=== PATIENT | male | born 1965 | race Caucasian/White ===

== ENCOUNTER 2019-11-14 21:21 | Emergency (ER) | payer SELFPAY ==
[~2019-11-14] VITALS: Ht 172.7 cm; Wt 85.7 kg
[2019-11-14] MEDS ORDERED: THIAMINE 100MG TABLET ONE (22:00)
[2019-11-14] MEDS ORDERED: THIAMINE 100MG TABLET PO ONE (22:00)
[2019-11-14] MEDS ORDERED: LORazepam 1MG TABLET PO ONE (22:00)
[2019-11-14] MEDS ORDERED: LORazepam 1MG TABLET ONE (22:01)
[2019-11-14 23:32] VITALS: BP 142/101
== END 2019-11-15 00:07 | disposition home or self-care (01) ==
LOC: ED 22:38
DX: S93.491A Sprain of other ligament of right ankle, initial encounter (principal); S20.212A Contusion of left front wall of thorax, initial encounter; F10.220 Alcohol dependence with intoxication, uncomplicated; Y90.9 Presence of alcohol in blood, level not specified; I10 Essential (primary) hypertension; Z90.89 Acquired absence of other organs; W01.0XXA Fall on same level from slipping, tripping and stumbling without subsequent striking against object, initial encounter; Y93.89 Activity, other specified; Y92.89 Other specified places as the place of occurrence of the external cause; Y99.8 Other external cause status
CPT/HCPCS: 99284

== ENCOUNTER 2019-11-25 23:36 | Inpatient (IN) | payer OTHER ==
[~2019-11-25] VITALS: Ht 172.7 cm; Wt 87.5 kg
[2019-11-26] MEDS ORDERED: SODIUM CHLORIDE 0.9% 1,000ML IVBOLUS ONE
[2019-11-26] MEDS ORDERED: MAGNESIUM SULFATE 1 GM, THIAMINE 100 MG, FOLIC ACID 1 MG, MVI ADULT 10 ML in SODIUM CHL... IV ONE
[2019-11-26] MEDS ORDERED: SODIUM CHLORIDE FLUSH 10ML SYR IVF ONE
[2019-11-26] MEDS ORDERED: LORazepam 2 MG/ML, 1ML ONE ×5 (00:06→04:34)
[2019-11-26] MEDS: LORazepam 2 MG/ML, 1ML IVPush PRN ×4 (00:25→04:37)
--- NOTE | 2019-11-26 00:33 | NUR ---
LATE ENTRY DUE TO PATIENT CARE: THIS IS A 53 YO MALE COMING IN WIHT CHIEF COMPLAINT OF NUMBNESS AND TINGLING TO BILATERAL ARMS AND LEGS. EQUAL STRENGTH BILATERALLY IN ALL EXTREMITIES, CSM INTACT, DIMINISHED SENSATION IN HANDS AND FEET. PATIENT STATES IT STARTED AT APPROX 2230. PATIENT APPEARS TO BE IN ETOH WITHDRAWL WITH CONTINUOUS TREMORS NOTED AT REST, PATIENT HAS HX OF WITHDRAWLS FROM ETOH, WELL A STROKE. DENIES ANY FACIAL NUMBNESS, PERRLA, NO FACIAL DROOP. ALL MONITORING IN PLACE, SINUS TACHYCARDIA NOTED ON COMMISSIONER PUBLIC WORKS. PATIENT HAS BEEN EXTREMELY ANXIOUS SINCE GETTING TO ROOM, PIV PLACED AND MEDICATED PER EMAR. CIWA SCALE IN PROGRESS. CALL LIGHT IN REACH. GIRLFRIEND IN ROOM
[2019-11-26 00:45] LABS: ALANINE AMINOTRANSFERASE 85 U/L (12-78); ALBUMIN 3.9 g/dL (3.4-5.0); ANION GAP 9 mmol/L (5-15); CALCIUM 8.8 mg/dL (8.5-10.1); CHLORIDE 100 mmol/L (98-107); CREATININE 0.72 mg/dL (0.7-1.3)
[2019-11-26 00:47] LABS: ALKALINE PHOSPHATASE 132 U/L (45-117); BILIRUBIN,TOTAL 1.4 mg/dL (0.2-1.0); TOTAL PROTEIN 8.2 g/dL (6.4-8.2)
--- NOTE | 2019-11-26 00:48 | NUR ---
MEDICATED PER EMAR FOR CONTINUOUS TREMORS WHILE AT REST. ERP UPDATED ON MEDS GIVEN
[2019-11-26 01:20] LABS: BASOPHILS # (AUTO) 0.01 x10^3/uL (0-0.1); BASOPHILS % (AUTO) 0 % (0-1); EOSINOPHILS % (AUTO) 0 % (1-7); LYMPHOCYTES # (AUTO) 0.26 x10^3/uL (1-3.4); LYMPHOCYTES % (AUTO) 9 % (22-44); MD SCAN; MEAN CORPUSCULAR HGB CONC 34.1 g/dL (33.2-36.2); MEAN CORPUSCULAR VOLUME 99.8 fL (81-97); MEAN PLATELET VOLUME 6.1 fL (7.4-10.4); MONOCYTES # (AUTO) 0.27 x10^3/uL (0.2-0.8); MONOCYTES % (AUTO) 9 % (2-9); NEUTROPHILS # (AUTO) 2.33 x10^3/uL (1.8-6.8); NEUTROPHILS % (AUTO) 81 % (42-75); PLATELET COUNT 95 x10^3/uL (130-400); RED BLOOD COUNT 4.65 x10^6/uL (4.38-5.82); RED CELL DISTRIBUTION WIDTH 14.7 % (9.4-14.8)
--- NOTE | 2019-11-26 02:43 | NUR ---
REPORT GIVEN TO AARON TERRY WHO IS TO ASSUME CARE FO PATIENT AT THIS TIME
--- NOTE | 2019-11-26 03:25 | NUR ---
Pt sleeping in [facility] at this time, VSS, appears comfortable with KASH
[2019-11-26] MEDS ORDERED: LORazepam 2 MG/ML, 1ML IV PRN ×3 (03:30→11:30)
[2019-11-26] MEDS ORDERED: hydrALAzine 20 MG/ML, 1ML IVPush PRN (03:30)
[2019-11-26] MEDS ORDERED: LABETALOL 5MG/ML, 20ML IVPush PRN (03:30)
[2019-11-26] MEDS ORDERED: CHLORDIAZEPOXIDE 25 MG CAPSULE PO PRN ×4 (03:30→23:00)
[2019-11-26] MEDS ORDERED: CHLORDIAZEPOXIDE 10 MG CAPSULE PO PRN (03:30)
[2019-11-26] MEDS ORDERED: ONDANSETRON 2MG/ML, 2ML IVPush PRN (03:30)
[2019-11-26] MEDS ORDERED: HEPARIN 5,000 UNITS/ML, 1ML ONE (03:58)
[2019-11-26] MEDS: POTASSIUM CHLORIDE 20 MEQ in LACTATED RINGERS 1,000 ML IV SCH ×3 (04:02→23:32)
[2019-11-26] MEDS: HEPARIN 5,000 UNITS/ML, 1ML SQ SCH ×3 (04:02→21:38)
[2019-11-26] MEDS ORDERED: ONDANSETRON 2MG/ML, 2ML ONE (04:34)
--- NOTE | 2019-11-26 05:07 | NUR ---
Report called to Priscilla WALKER to assume care upon transfer to [facility]
[2019-11-26 05:45] VITALS: BP 137/93
[2019-11-26 07:12] VITALS: BP 134/85
[2019-11-26] MEDS ORDERED: LORazepam 2 MG/ML, 1ML IVPush ONE ×2 (08:00)
[2019-11-26 08:18] LABS: ALANINE AMINOTRANSFERASE 71 U/L (12-78); ALBUMIN 3.4 g/dL (3.4-5.0); ANION GAP 8 mmol/L (5-15); CALCIUM 8.7 mg/dL (8.5-10.1); CHLORIDE 103 mmol/L (98-107); CREATININE 0.53 mg/dL (0.7-1.3)
[2019-11-26 08:21] LABS: ALKALINE PHOSPHATASE 113 U/L (45-117); BILIRUBIN,TOTAL 1.9 mg/dL (0.2-1.0)
[2019-11-26 08:37] LABS: MEAN CORPUSCULAR HEMOGLOBIN 33.6 pg (27.5-34.5); MEAN CORPUSCULAR HGB CONC 33.5 g/dL (33.2-36.2); MEAN CORPUSCULAR VOLUME 100.1 fL (81-97); RED BLOOD COUNT 4.24 x10^6/uL (4.38-5.82); RED CELL DISTRIBUTION WIDTH 14.6 % (9.4-14.8)
[2019-11-26 08:59] LABS: BASOPHILS # (AUTO) 0.02 x10^3/uL (0-0.1); BASOPHILS % (AUTO) 1 % (0-1); EOSINOPHILS # (AUTO) 0.02 x10^3/uL (0-0.4); EOSINOPHILS % (AUTO) 0 % (1-7); LYMPHOCYTES # (AUTO) 0.56 x10^3/uL (1-3.4); LYMPHOCYTES % (AUTO) 16 % (22-44); MD SCAN; MEAN PLATELET VOLUME 6.7 fL (7.4-10.4); MONOCYTES # (AUTO) 0.31 x10^3/uL (0.2-0.8); MONOCYTES % (AUTO) 9 % (2-9); NEUTROPHILS # (AUTO) 2.67 x10^3/uL (1.8-6.8); NEUTROPHILS % (AUTO) 75 % (42-75); PLATELET COUNT 79 x10^3/uL (130-400)
[2019-11-26] MEDS ORDERED: LORazepam 0.5MG TABLET PO PRN (11:30)
[2019-11-26] MEDS ORDERED: LORazepam 1MG TABLET PO PRN ×3 (11:30)
[2019-11-26] MEDS: LORazepam 2 MG/ML, 1ML IV PRN ×7 (11:56→22:19)
[2019-11-26 12:33] VITALS: BP 169/109
[2019-11-26 18:49] VITALS: BP 154/96
[2019-11-27] MEDS: LORazepam 2 MG/ML, 1ML IV PRN ×5 (01:00→23:18)
[2019-11-27 01:07] VITALS: BP 173/113
[2019-11-27 01:32] VITALS: BP_SYST 152; BP_SYST 166; BP_DIAS 95; BP_DIAS 98
[2019-11-27] MEDS ORDERED: CHLORDIAZEPOXIDE 25 MG CAPSULE PO PRN (03:00)
[2019-11-27 06:02] LABS: CHLORIDE 103 mmol/L (98-107)
[2019-11-27 06:14] LABS: ALANINE AMINOTRANSFERASE 61 U/L (12-78); ALBUMIN 3.4 g/dL (3.4-5.0); ALKALINE PHOSPHATASE 110 U/L (45-117); ANION GAP 8 mmol/L (5-15); BILIRUBIN,TOTAL 2.4 mg/dL (0.2-1.0); CALCIUM 9.3 mg/dL (8.5-10.1); CREATININE 0.57 mg/dL (0.7-1.3); TOTAL PROTEIN 7.3 g/dL (6.4-8.2)
[2019-11-27 06:20] LABS: MEAN CORPUSCULAR VOLUME 99.8 fL (81-97); MEAN PLATELET VOLUME 7.1 fL (7.4-10.4); PLATELET COUNT 80 x10^3/uL (130-400); RED BLOOD COUNT 4.36 x10^6/uL (4.38-5.82); RED CELL DISTRIBUTION WIDTH 14.2 % (9.4-14.8)
[2019-11-27] MEDS: HEPARIN 5,000 UNITS/ML, 1ML SQ SCH ×3 (06:24→20:14)
[2019-11-27 06:51] LABS: BASOPHILS # (AUTO) 0.02 x10^3/uL (0-0.1); BASOPHILS % (AUTO) 1 % (0-1); EOSINOPHILS # (AUTO) 0.01 x10^3/uL (0-0.4); EOSINOPHILS % (AUTO) 0 % (1-7); LYMPHOCYTES # (AUTO) 0.33 x10^3/uL (1-3.4); LYMPHOCYTES % (AUTO) 10 % (22-44); MD SCAN; MONOCYTES # (AUTO) 0.43 x10^3/uL (0.2-0.8); MONOCYTES % (AUTO) 12 % (2-9); NEUTROPHILS # (AUTO) 2.74 x10^3/uL (1.8-6.8); NEUTROPHILS % (AUTO) 78 % (42-75)
[2019-11-27] MEDS ORDERED: POTASSIUM CHLORIDE 20 MEQ TAB.ER.PRT PO ONE (07:00)
[2019-11-27 07:52] VITALS: BP 157/104
[2019-11-27] MEDS ORDERED: POTASSIUM CHLORIDE 10 MEQ TABLET.ER ONE (09:59)
[2019-11-27] MEDS: POTASSIUM CHLORIDE 20 MEQ in LACTATED RINGERS 1,000 ML IV SCH ×2 (11:20→20:15)
[2019-11-27 13:25] VITALS: BP 125/86
[2019-11-27] MEDS: CHLORDIAZEPOXIDE 25 MG CAPSULE PO SCH ×2 (17:18→20:15)
[2019-11-27 20:54] VITALS: BP 143/96
[2019-11-27] MEDS ORDERED: CHLORDIAZEPOXIDE 25 MG CAPSULE PO SCH (21:00)
[2019-11-27 23:00] LABS: MICROSCOPIC NOT IND
[2019-11-28 02:00] VITALS: BP 170/49
[2019-11-28] MEDS: LORazepam 2 MG/ML, 1ML IV PRN ×5 (04:01→21:19)
[2019-11-28] MEDS: CHLORDIAZEPOXIDE 25 MG CAPSULE PO SCH ×4 (05:43→19:54)
[2019-11-28] MEDS: HEPARIN 5,000 UNITS/ML, 1ML SQ SCH ×3 (05:43→22:53)
[2019-11-28] MEDS: POTASSIUM CHLORIDE 20 MEQ in LACTATED RINGERS 1,000 ML IV SCH ×2 (06:00→22:53)
[2019-11-28 06:09] LABS: MEAN CORPUSCULAR HEMOGLOBIN 34.3 pg (27.5-34.5); MEAN CORPUSCULAR HGB CONC 34.2 g/dL (33.2-36.2); MEAN CORPUSCULAR VOLUME 100.4 fL (81-97); MEAN PLATELET VOLUME 7.5 fL (7.4-10.4); PLATELET COUNT 87 x10^3/uL (130-400); RED BLOOD COUNT 4.29 x10^6/uL (4.38-5.82); RED CELL DISTRIBUTION WIDTH 14.6 % (9.4-14.8)
[2019-11-28 06:12] LABS: CHLORIDE 106 mmol/L (98-107)
[2019-11-28 06:35] LABS: ANION GAP 8 mmol/L (5-15); CALCIUM 9.4 mg/dL (8.5-10.1); CREATININE 0.54 mg/dL (0.7-1.3)
[2019-11-28 06:37] LABS: BASOPHILS # (AUTO) 0.01 x10^3/uL (0-0.1); BASOPHILS % (AUTO) 0 % (0-1); EOSINOPHILS # (AUTO) 0.02 x10^3/uL (0-0.4); EOSINOPHILS % (AUTO) 1 % (1-7); LYMPHOCYTES # (AUTO) 0.57 x10^3/uL (1-3.4); LYMPHOCYTES % (AUTO) 14 % (22-44); MD SCAN; MONOCYTES # (AUTO) 0.51 x10^3/uL (0.2-0.8); MONOCYTES % (AUTO) 13 % (2-9); NEUTROPHILS # (AUTO) 2.84 x10^3/uL (1.8-6.8); NEUTROPHILS % (AUTO) 72 % (42-75)
[2019-11-28 06:52] VITALS: BP 146/109
[2019-11-28 08:08] LABS: ALANINE AMINOTRANSFERASE 48 U/L (12-78)
[2019-11-28 08:10] LABS: ALKALINE PHOSPHATASE 95 U/L (45-117); BILIRUBIN,TOTAL 1.9 mg/dL (0.2-1.0); TOTAL PROTEIN 6.4 g/dL (6.4-8.2)
[2019-11-28 15:00] VITALS: BP 125/92
[2019-11-28 19:33] LABS: BASOPHILS # (AUTO) 0.02 x10^3/uL (0-0.1); BASOPHILS % (AUTO) 0 % (0-1); EOSINOPHILS # (AUTO) 0.03 x10^3/uL (0-0.4); EOSINOPHILS % (AUTO) 1 % (1-7); LYMPHOCYTES % (AUTO) 13 % (22-44); MD NO; MEAN CORPUSCULAR HEMOGLOBIN 34.5 pg (27.5-34.5); MEAN CORPUSCULAR HGB CONC 34.1 g/dL (33.2-36.2); MEAN PLATELET VOLUME 7.5 fL (7.4-10.4); MONOCYTES # (AUTO) 0.52 x10^3/uL (0.2-0.8); MONOCYTES % (AUTO) 11 % (2-9); NEUTROPHILS # (AUTO) 3.42 x10^3/uL (1.8-6.8); NEUTROPHILS % (AUTO) 75 % (42-75); PLATELET COUNT 103 x10^3/uL (130-400); RED BLOOD COUNT 4.18 x10^6/uL (4.38-5.82); RED CELL DISTRIBUTION WIDTH 14.1 % (9.4-14.8)
[2019-11-28 19:45] LABS: ALANINE AMINOTRANSFERASE 50 U/L (12-78); ALBUMIN 2.9 g/dL (3.4-5.0); ANION GAP 8 mmol/L (5-15); CALCIUM 9.2 mg/dL (8.5-10.1); CHLORIDE 105 mmol/L (98-107); CREATININE 0.76 mg/dL (0.7-1.3)
[2019-11-28 19:47] LABS: ALKALINE PHOSPHATASE 99 U/L (45-117); BILIRUBIN,TOTAL 1.7 mg/dL (0.2-1.0); TOTAL PROTEIN 6.5 g/dL (6.4-8.2)
[2019-11-28 20:03] VITALS: BP 139/97
[2019-11-29 00:16] VITALS: BP 143/96
[2019-11-29] MEDS: LORazepam 2 MG/ML, 1ML IV PRN ×3 (00:23→08:15)
[2019-11-29] MEDS: IBUPROFEN 600 MG TABLET PO PRN ×3 (01:45→18:32)
[2019-11-29] MEDS: CHLORDIAZEPOXIDE 25 MG CAPSULE PO SCH ×2 (05:02→11:37)
[2019-11-29] MEDS: HEPARIN 5,000 UNITS/ML, 1ML SQ SCH ×3 (06:09→23:16)
[2019-11-29 06:40] VITALS: BP 127/87
[2019-11-29] MEDS: POTASSIUM CHLORIDE 20 MEQ in LACTATED RINGERS 1,000 ML IV SCH (09:02)
[2019-11-29 13:49] VITALS: BP 133/86
[2019-11-29] MEDS ORDERED: CHLORDIAZEPOXIDE 25 MG CAPSULE PO PRN ×2 (14:30)
[2019-11-29] MEDS ORDERED: DOCUSATE 100 MG CAPSULE PO PRN (15:30)
[2019-11-29] MEDS: CHLORDIAZEPOXIDE 10 MG CAPSULE PO PRN (15:44)
[2019-11-29] MEDS: CHLORDIAZEPOXIDE 25 MG CAPSULE PO PRN ×2 (18:32→19:53)
[2019-11-29 19:54] VITALS: BP 142/98
[2019-11-30] MEDS: CHLORDIAZEPOXIDE 25 MG CAPSULE PO PRN ×3 (00:06→07:59)
[2019-11-30 00:55] VITALS: BP 156/99
[2019-11-30 05:13] LABS: ANION GAP 6 mmol/L (5-15); CALCIUM 9.4 mg/dL (8.5-10.1); CHLORIDE 109 mmol/L (98-107)
[2019-11-30 05:14] LABS: BASOPHILS # (AUTO) 0.02 x10^3/uL (0-0.1); BASOPHILS % (AUTO) 0 % (0-1); EOSINOPHILS # (AUTO) 0.04 x10^3/uL (0-0.4); EOSINOPHILS % (AUTO) 1 % (1-7); LYMPHOCYTES # (AUTO) 0.85 x10^3/uL (1-3.4); LYMPHOCYTES % (AUTO) 24 % (22-44); MD NO; MEAN CORPUSCULAR HEMOGLOBIN 34.3 pg (27.5-34.5); MEAN CORPUSCULAR HGB CONC 33.8 g/dL (33.2-36.2); MEAN CORPUSCULAR VOLUME 101.7 fL (81-97); MONOCYTES # (AUTO) 0.67 x10^3/uL (0.2-0.8); MONOCYTES % (AUTO) 19 % (2-9); NEUTROPHILS # (AUTO) 1.94 x10^3/uL (1.8-6.8); NEUTROPHILS % (AUTO) 55 % (42-75); PLATELET COUNT 121 x10^3/uL (130-400); RED BLOOD COUNT 4.02 x10^6/uL (4.38-5.82)
[2019-11-30 05:16] LABS: CREATININE 0.66 mg/dL (0.7-1.3)
[2019-11-30] MEDS: HEPARIN 5,000 UNITS/ML, 1ML SQ SCH ×3 (06:17→23:14)
[2019-11-30 07:05] VITALS: BP 148/101
[2019-11-30] MEDS: IBUPROFEN 600 MG TABLET PO PRN ×3 (07:59→21:23)
[2019-11-30] MEDS: FOLIC ACID 1 MG TABLET PO SCH (10:56)
[2019-11-30] MEDS: CYANOCOBALAMIN 1,000 MCG TABLET PO SCH (10:56)
[2019-11-30] MEDS: MULTIVITAMIN 1 TABLET PO SCH (10:56)
[2019-11-30] MEDS ORDERED: OXYC-307 PO (11:28)
[2019-11-30] MEDS ORDERED: LISI-170 PO (11:28)
[2019-11-30] MEDS: CHLORDIAZEPOXIDE 10 MG CAPSULE PO PRN ×3 (12:16→21:23)
[2019-11-30 12:30] VITALS: BP 148/108
[2019-11-30] MEDS: THIAMINE 100MG TABLET PO SCH (18:30)
[2019-11-30 19:04] VITALS: BP 131/88
[2019-12-01 01:06] VITALS: BP 152/98
[2019-12-01] MEDS: CHLORDIAZEPOXIDE 10 MG CAPSULE PO PRN ×4 (01:50→21:08)
[2019-12-01] MEDS: HEPARIN 5,000 UNITS/ML, 1ML SQ SCH ×3 (06:17→23:18)
[2019-12-01 06:21] VITALS: BP 148/101
[2019-12-01] MEDS: MULTIVITAMIN 1 TABLET PO SCH (08:14)
[2019-12-01] MEDS: FOLIC ACID 1 MG TABLET PO SCH (08:15)
[2019-12-01] MEDS: THIAMINE 100MG TABLET PO SCH (08:15)
[2019-12-01] MEDS: LISINOPRIL 20 MG TABLET PO SCH (08:15)
[2019-12-01] MEDS: CYANOCOBALAMIN 1,000 MCG TABLET PO SCH (08:16)
[2019-12-01] MEDS: IBUPROFEN 600 MG TABLET PO PRN ×2 (08:28→21:08)
[2019-12-01 12:25] VITALS: BP 123/84
[2019-12-01] MEDS: THIAMINE 200 MG in SODIUM CHLORIDE 0.9% 50 ML IV SCH (15:51)
[2019-12-01 20:26] VITALS: BP 132/89
[2019-12-02] MEDS: THIAMINE 200 MG in SODIUM CHLORIDE 0.9% 50 ML IV SCH ×4 (00:02→23:33)
[2019-12-02 00:39] VITALS: BP 140/89
[2019-12-02] MEDS: CHLORDIAZEPOXIDE 10 MG CAPSULE PO PRN (02:43)
[2019-12-02] MEDS: HEPARIN 5,000 UNITS/ML, 1ML SQ SCH ×2 (06:19→16:04)
[2019-12-02 07:03] VITALS: BP 133/88
[2019-12-02 07:14] LABS: MEAN CORPUSCULAR HEMOGLOBIN 34.4 pg (27.5-34.5); MEAN CORPUSCULAR HGB CONC 33.7 g/dL (33.2-36.2); MEAN PLATELET VOLUME 7.1 fL (7.4-10.4); PLATELET COUNT 222 x10^3/uL (130-400); RED BLOOD COUNT 4.15 x10^6/uL (4.38-5.82); RED CELL DISTRIBUTION WIDTH 13.8 % (9.4-14.8)
[2019-12-02 07:20] LABS: ANION GAP 5 mmol/L (5-15); CALCIUM 9.1 mg/dL (8.5-10.1); CHLORIDE 107 mmol/L (98-107)
[2019-12-02 07:43] LABS: CREATININE 0.63 mg/dL (0.7-1.3)
[2019-12-02 08:22] LABS: MD YES
[2019-12-02 08:25] LABS: <PLATELET ESTIMATE> ADEQUATE; <PLT MORPHOLOGY> NORMAL PLT MORPH; BAND#(MANUAL) 0.07 x10^3/uL; BANDS%(MANUAL) 2 % (0-7); LYMPH#(MANUAL) 0.95 x10^3/uL (1-3.4); LYMPHS% (MANUAL) 28 % (22-44); MONOS#(MANUAL) 0.34 x10^3/uL (0.3-2.7); MONOS% (MANUAL) 10 % (2-9); MYELOCYTES# (MANUAL) 0.03 x10^3/uL (0-0); MYELOCYTES% (MANUAL) 1 % (0-0); SEG#(MANUAL) 2.01 x10^3/uL (1.8-6.8); SEGS% (MANUAL) 59 % (42-75)
[2019-12-02] MEDS: THIAMINE 100MG TABLET PO SCH (09:22)
[2019-12-02] MEDS: LISINOPRIL 20 MG TABLET PO SCH (09:23)
[2019-12-02] MEDS: IBUPROFEN 600 MG TABLET PO PRN ×2 (09:23→16:04)
[2019-12-02] MEDS: CYANOCOBALAMIN 1,000 MCG TABLET PO SCH (09:23)
[2019-12-02] MEDS: MULTIVITAMIN 1 TABLET PO SCH (09:23)
[2019-12-02] MEDS: FOLIC ACID 1 MG TABLET PO SCH (09:23)
[2019-12-02] MEDS: CHLORDIAZEPOXIDE 25 MG CAPSULE PO PRN ×2 (09:23→13:32)
[2019-12-02 12:29] VITALS: BP 118/79
[2019-12-02] MEDS: ENOXAPARIN 40 MG/0.4 ML SQ SCH (18:00)
[2019-12-02 19:26] VITALS: BP 128/84
[2019-12-03 01:54] VITALS: BP 132/88
[2019-12-03 06:36] VITALS: BP 117/79
[2019-12-03] MEDS: CYANOCOBALAMIN 1,000 MCG TABLET PO SCH (08:22)
[2019-12-03] MEDS: THIAMINE 100MG TABLET PO SCH (08:22)
[2019-12-03] MEDS: MULTIVITAMIN 1 TABLET PO SCH (08:22)
[2019-12-03] MEDS: LISINOPRIL 20 MG TABLET PO SCH (08:23)
[2019-12-03] MEDS: FOLIC ACID 1 MG TABLET PO SCH (08:23)
[2019-12-03] MEDS: THIAMINE 200 MG in SODIUM CHLORIDE 0.9% 50 ML IV SCH ×2 (08:25→16:11)
[2019-12-03 12:39] VITALS: BP 120/68
[2019-12-03] MEDS: ENOXAPARIN 40 MG/0.4 ML SQ SCH (18:36)
[2019-12-03 19:06] VITALS: BP 113/75
[2019-12-04] MEDS: THIAMINE 200 MG in SODIUM CHLORIDE 0.9% 50 ML IV SCH ×2 (00:02→08:56)
[2019-12-04 00:14] VITALS: BP 130/88
[2019-12-04] MEDS: IBUPROFEN 600 MG TABLET PO PRN (05:13)
[2019-12-04 06:26] LABS: CHLORIDE 106 mmol/L (98-107)
[2019-12-04 06:30] LABS: MEAN CORPUSCULAR HGB CONC 33.4 g/dL (33.2-36.2); MEAN CORPUSCULAR VOLUME 101.9 fL (81-97); MEAN PLATELET VOLUME 7.3 fL (7.4-10.4); PLATELET COUNT 351 x10^3/uL (130-400); RED BLOOD COUNT 4.52 x10^6/uL (4.38-5.82); RED CELL DISTRIBUTION WIDTH 13.8 % (9.4-14.8)
[2019-12-04 06:33] LABS: ANION GAP 6 mmol/L (5-15); CALCIUM 9.1 mg/dL (8.5-10.1); CREATININE 0.71 mg/dL (0.7-1.3)
[2019-12-04 06:50] VITALS: BP 121/84
[2019-12-04 06:53] LABS: MD YES
[2019-12-04 07:11] LABS: <PLATELET ESTIMATE> ADEQUATE; <PLT MORPHOLOGY> NORMAL PLT MORPH; EOS#(MANUAL) 0.04 x10^3/uL (0.0-0.4); EOS% (MANUAL) 1 % (1-7); LYMPH#(MANUAL) 1.03 x10^3/uL (1-3.4); LYMPHS% (MANUAL) 27 % (22-44); MONOS#(MANUAL) 0.53 x10^3/uL (0.3-2.7); MONOS% (MANUAL) 14 % (2-9); SEGS% (MANUAL) 58 % (42-75)
[2019-12-04] MEDS: FOLIC ACID 1 MG TABLET PO SCH (08:56)
[2019-12-04] MEDS: MULTIVITAMIN 1 TABLET PO SCH (08:56)
[2019-12-04] MEDS: LISINOPRIL 20 MG TABLET PO SCH (08:56)
[2019-12-04] MEDS: CYANOCOBALAMIN 1,000 MCG TABLET PO SCH (08:57)
[2019-12-04 12:14] VITALS: BP 124/84
[2019-12-04] MEDS: ENOXAPARIN 40 MG/0.4 ML SQ SCH (17:59)
[2019-12-04 19:05] VITALS: BP 120/80
[2019-12-04] MEDS ORDERED: LORazepam 1MG TABLET PO ONE (21:30)
[2019-12-05 00:52] VITALS: BP 133/82
[2019-12-05 06:42] VITALS: BP 132/90
[2019-12-05] MEDS: MULTIVITAMIN 1 TABLET PO SCH (08:19)
[2019-12-05] MEDS: CYANOCOBALAMIN 1,000 MCG TABLET PO SCH (08:19)
[2019-12-05] MEDS: LISINOPRIL 20 MG TABLET PO SCH (08:20)
[2019-12-05] MEDS: FOLIC ACID 1 MG TABLET PO SCH (08:21)
[2019-12-05] MEDS: THIAMINE 250 MG in SODIUM CHLORIDE 0.9% 50 ML IV SCH (09:38)
[2019-12-05] MEDS: IBUPROFEN 600 MG TABLET PO PRN ×2 (09:38→15:55)
[2019-12-05 12:20] VITALS: BP 123/85
[2019-12-05] MEDS: ENOXAPARIN 40 MG/0.4 ML SQ SCH (17:02)
[2019-12-05 19:11] VITALS: BP 101/68
[2019-12-05] MEDS ORDERED: TRAZODONE 50MG TABLET PO SCH (21:00)
[2019-12-06 02:45] VITALS: BP 135/83
[2019-12-06] MEDS: IBUPROFEN 600 MG TABLET PO PRN (02:56)
[2019-12-06] MEDS ORDERED: DIPHENHYDRAMINE 25 MG CAPSULE ONE (04:27)
[2019-12-06] MEDS ORDERED: DIPHENHYDRAMINE 25 MG CAPSULE PO PRN (04:30)
[2019-12-06 08:29] VITALS: BP 100/66
[2019-12-06] MEDS: FOLIC ACID 1 MG TABLET PO SCH (08:46)
[2019-12-06] MEDS: CYANOCOBALAMIN 1,000 MCG TABLET PO SCH (08:47)
[2019-12-06] MEDS: LISINOPRIL 20 MG TABLET PO SCH (08:47)
[2019-12-06] MEDS: MULTIVITAMIN 1 TABLET PO SCH (08:47)
[2019-12-06] MEDS: THIAMINE 250 MG in SODIUM CHLORIDE 0.9% 50 ML IV SCH (10:08)
[2019-12-06 12:03] VITALS: BP 110/77
[2019-12-06] MEDS ORDERED: FOLI-17 PO (12:27)
[2019-12-06] MEDS ORDERED: THIA100T27 PO (12:27)
[2019-12-06] MEDS ORDERED: CYAN-27 PO (12:27)
== END 2019-12-06 16:30 | disposition home or self-care (01) | DRG 433 ==
LOC: ED 11-26 02:13 → EDIP 11-26 02:42 → 4WST 11-26 05:20 → DCLOUNGE 12-06 16:25
PROVIDERS: ADMIT Student in an Organized Health Care Education/Training Program; ATTEND Family Medicine
PROC: 0T9B70Z Drainage of Bladder with Drainage Device, Via Natural or Artificial Opening (ICD-10-PCS; principal; 2019-11-27)
DX: K70.10 Alcoholic hepatitis without ascites (principal); F10.239 Alcohol dependence with withdrawal, unspecified; E46 Unspecified protein-calorie malnutrition; E51.2 Wernicke's encephalopathy; D69.6 Thrombocytopenia, unspecified; E86.0 Dehydration; F41.9 Anxiety disorder, unspecified; G89.29 Other chronic pain; G47.00 Insomnia, unspecified; I10 Essential (primary) hypertension; M21.371 Foot drop, right foot; Z72.0 Tobacco use; Z87.828 Personal history of other (healed) physical injury and trauma
CPT/HCPCS: 36415; 70551; 80048; 80053; 80307; 81003; 82607; 83690; 83735; 84100; 84443; 85025; 93005; 96374; 96375; 99285; G0378; J1644; J1650; J2405; J3411; J3475; J3480; 92523-GN; J0360; J2060; J7030; J7120; Q0163

== ENCOUNTER 2020-02-04 15:08 | Emergency (ER) | payer MEDICAID ==
[~2020-02-04] VITALS: Ht 175.3 cm; Wt 95.0 kg
[~2020-02-04 15:08] MED LIST: CYAN-27 PO; FOLI-17 PO; LISI-170 PO; OXYC-307 PO; THIA100T27 PO
[2020-02-04] MEDS ORDERED: KETOROLAC 30 MG/1 ML IM ONE (15:30)
--- NOTE | 2020-02-04 15:31 | NUR ---
PT RESTING IN GURNEY, NO COMPLAINTS AT THIS TIME. GIRLFRIEND AT BEDSIDE.
[2020-02-04] MEDS ORDERED: NEOSPORIN OINT. PKT 1 PACKET ONE (15:42)
[2020-02-04] MEDS ORDERED: KETOROLAC 30 MG/1 ML ONE (15:46)
[2020-02-04 16:02] LABS: BASOPHILS % (AUTO) 1 % (0-1); EOSINOPHILS % (AUTO) 0 % (1-7); LYMPHOCYTES % (AUTO) 24 % (22-44); MEAN CORPUSCULAR HGB CONC 33.4 g/dL (33.2-36.2); MEAN PLATELET VOLUME 6.7 fL (7.4-10.4); MONOCYTES % (AUTO) 12 % (2-9); NEUTROPHILS % (AUTO) 63 % (42-75); PLATELET COUNT 141 x10^3/uL (130-400); RED BLOOD COUNT 4.53 x10^6/uL (4.38-5.82)
[2020-02-04 16:08] LABS: ALANINE AMINOTRANSFERASE 89 U/L (12-78); ALBUMIN 3.5 g/dL (3.4-5.0); ANION GAP 7 mmol/L (5-15); CALCIUM 8.2 mg/dL (8.5-10.1); CHLORIDE 108 mmol/L (98-107)
[2020-02-04 16:12] LABS: ALKALINE PHOSPHATASE 92 U/L (45-117); BILIRUBIN,TOTAL 0.6 mg/dL (0.2-1.0); TOTAL PROTEIN 7.2 g/dL (6.4-8.2)
[2020-02-04 16:13] LABS: MD NO
[2020-02-04 17:06] VITALS: BP 139/78
== END 2020-02-04 17:08 | disposition home or self-care (01) ==
LOC: ED 16:22
DX: S90.811A Abrasion, right foot, initial encounter (principal); R60.0 Localized edema; M79.672 Pain in left foot; F10.229 Alcohol dependence with intoxication, unspecified; I10 Essential (primary) hypertension; F17.290 Nicotine dependence, other tobacco product, uncomplicated; Y90.9 Presence of alcohol in blood, level not specified; X58.XXXA Exposure to other specified factors, initial encounter; Y93.89 Activity, other specified; Y92.098 Other place in other non-institutional residence as the place of occurrence of the external cause; Y99.8 Other external cause status
CPT/HCPCS: 36415; 73630; 80053; 80307; 83880; 84550; 85025; 93970; 96372; 99285; J1885

== ENCOUNTER 2020-02-06 03:23 | Emergency (ER) | payer MEDICAID ==
[~2020-02-06] VITALS: Ht 182.9 cm; Wt 80.0 kg
[2020-02-06] MEDS ORDERED: LORazepam 2 MG/ML, 1ML ONE ×2 (03:31→05:00)
--- NOTE | 2020-02-06 03:49 | NUR ---
PT BIB FRIEND, PT TREMULOUS, SLOW TO ANSWER QUESTIONS BUT ORIENTED TO NAME, PLACE AND TIME. PT HAS HISTORY OF DT'S, LAST DRINK STATED TO BE AT 1600 02/06/2020. EGK TAKEN, IV PLACED, LABS DRAWN, NS BOLUS STARTED AND ATIVAN GIVEN. PT ON ALL MONITORS, AWAITING BANA BAG FROM PHARMACY
[2020-02-06] MEDS ORDERED: SODIUM CHLORIDE 0.9% 1,000ML IVBOLUS ONE (04:00)
[2020-02-06] MEDS ORDERED: SODIUM CHLORIDE FLUSH 10ML SYR IVF ONE (04:00)
[2020-02-06] MEDS ORDERED: ONDANSETRON 2MG/ML, 2ML IVPush ONE (04:00)
[2020-02-06] MEDS ORDERED: LORazepam 2 MG/ML, 1ML IVPush ONE (04:00)
[2020-02-06] MEDS ORDERED: MAGNESIUM SULFATE 1 GM, THIAMINE 100 MG, FOLIC ACID 1 MG, MVI ADULT 10 ML in SODIUM CHL... IV ONE (04:00)
[2020-02-06] MEDS ORDERED: LORazepam 2 MG/ML, 1ML IVPush PRN (04:00)
[2020-02-06 04:02] LABS: BASOPHILS % (AUTO) 1 % (0-1); EOSINOPHILS % (AUTO) 0 % (1-7); LYMPHOCYTES % (AUTO) 24 % (22-44); MONOCYTES % (AUTO) 11 % (2-9); NEUTROPHILS % (AUTO) 64 % (42-75); PLATELET COUNT 147 x10^3/uL (130-400); RED BLOOD COUNT 4.76 x10^6/uL (4.38-5.82); RED CELL DISTRIBUTION WIDTH 14.1 % (9.4-14.8)
[2020-02-06 04:03] LABS: MD NO
[2020-02-06] MEDS ORDERED: ONDANSETRON 2MG/ML, 2ML ONE (04:10)
[2020-02-06 04:14] LABS: ALANINE AMINOTRANSFERASE 86 U/L (12-78); ANION GAP 17 mmol/L (5-15); CALCIUM 8.7 mg/dL (8.5-10.1); CHLORIDE 100 mmol/L (98-107)
[2020-02-06 04:16] LABS: ALKALINE PHOSPHATASE 101 U/L (45-117); BILIRUBIN,TOTAL 0.8 mg/dL (0.2-1.0); TOTAL PROTEIN 8.1 g/dL (6.4-8.2)
[2020-02-06] MEDS ORDERED: POTASSIUM CHLORIDE 20 MEQ TAB.ER.PRT PO ONE (04:30)
[2020-02-06] MEDS ORDERED: POTASSIUM CHLORIDE 20 MEQ TAB.ER.PRT ONE (04:49)
--- NOTE | 2020-02-06 05:10 | NUR ---
PT HAVING SOME TREMOR WHEN ATTEMPTING TO TAKE MEDS, PT A/O X 4, VSS, NO DIAPHORIS. PT MEDIXCATED PER EMAR, ERP AWARE.
--- NOTE | 2020-02-06 06:23 | NUR ---
PT RESTING COMFORTABLY IN BED, NO TREMORS NOTED, PT STATES FEELING BETTER, IVF FLUIDS ALMOST DONE. D/C INSTRUCTIONS GIVEN
[2020-02-06] MEDS ORDERED: CHLORDIAZEPOXIDE 25 MG CAPSULE PO ONE (06:30)
[2020-02-06] MEDS ORDERED: CHLORDIAZEPOXIDE 25 MG CAPSULE ONE (06:30)
--- NOTE | 2020-02-06 06:37 | NUR ---
PT STATES HE IS FEELING BETTER BUT PT STILL HAS NOTICABLE TREMORS. ERP UPDATED, LIBRIM PO ORDERED, PT OK TO TAKE IT AND DISCHARGE AFTER 15 MIN. PT AMBULATED TO RESTROOM TO URINATE
[2020-02-06 06:53] VITALS: BP 145/104
== END 2020-02-06 07:05 | disposition home or self-care (01) ==
LOC: ED 06:28
DX: F10.231 Alcohol dependence with withdrawal delirium (principal); R56.9 Unspecified convulsions; I10 Essential (primary) hypertension; I16.9 Hypertensive crisis, unspecified; R00.0 Tachycardia, unspecified; Y90.0 Blood alcohol level of less than 20 mg/100 ml
CPT/HCPCS: 36415; 80053; 80307; 82140; 85025; 93005; 96361; 96365; 96366; 96375; 96376; 99285; J2060; J2405; J3411; J3475; J7030

== ENCOUNTER 2020-04-19 23:37 | Inpatient (IN) | payer MEDICAID ==
[~2020-04-19] VITALS: Ht 175.3 cm; Wt 91.4 kg
[~2020-04-19 23:37] MED LIST changes: -OXYC-307 PO; +OXYC-380 PO
--- NOTE | 2020-04-20 00:45 | NUR ---
PT SOURAV. PER EMS PT'S GIRLFRIEND CALLED EMS DUE TO PT BEING INTOXICATED AND UNABLE TO AMBULATE ON HIS OWN. PT A&OX4. PT RESTING IN [facility], MONITORING IN PLACE, KASH AT THIS TIME, SOPHIE.
--- NOTE | 2020-04-20 01:25 | NUR ---
PT RESTING IN [facility], MONITORING IN PLACE, KASH AT THIS TIME, [place]. PT'S GIRLFRIEND AT BEDSIDE.
--- NOTE | 2020-04-20 01:51 | NUR ---
REPORT GIVEN TO AARON TORRES.
--- NOTE | 2020-04-20 02:37 | NUR ---
OATIENT RESTING IN BED; ABLE TO BOOST HIMSELF BACK UP IN BED. GF AT BEDSIDE SNORING SITTING UP IN CHAIR. PATIENT SLOW TO FOLLOW COMMANDS. SMELLS OF ALCOHOL. CALL CAMPUZANO IN REACH AND EXPLAINED TO PATIENT. SAFETY MAINTAINED. WILL CONTINUE TO MONITOR
--- NOTE | 2020-04-20 03:00 | NUR ---
PATIENT REPEATEDLY TAKING VS MONITORING EQUIPMENT OFF/TRYING TO GET OOB. RN IN TO ROOM MUTLIPLE TIMES TO REDIRECT PATIENT. REQUIRING MUTLIPLE CUES. SAFETY MAINTAINED. CALL CAMPUZANO IN REACH
--- NOTE | 2020-04-20 03:57 | NUR ---
PATIENT REPEATEDLY TRYING TO GET OOB; GOING TO END OF BED. RN IN MULTIPLE TIMES TO ENCOURAGE PATIENT TO GET BACK INTO BED AND LAY DOWN. PATIENT TREMULOUS. ASKING FOR WATER OR TO USE URINAL. UNABLE TO FOLLOW DIRECTIONS AT THIS TIME. MULTIPLE REPEATED CUES TO HELP TO USE URINAL. SAFETY MAINTAINED. GF REMAINS AT BEDSIDE SLEEPING UP IN CHAIR. WILL CONTINUE TO MONITOR.
--- NOTE | 2020-04-20 04:09 | NUR ---
ATTEMPTED TO AMBULATE WITH 2 PEOPLE. SLIGHTLY UNSTEADY BUT ALSO HAS DIFFICULTY LIFTING R LEG WHICH GF STATES IS NORMAL FOR HIM FROM PAST SURGERY ON HIS LEG. PATIENT STILL UNABLE TO FLUENTLY FOLLOW COMMANDS. GF REPORTS PATIENT DRINK "10 TALL BOY HURRICANES A DAY". DR. THURMAN NOTIFIED AND VALIUM ORDERED
[2020-04-20] MEDS ORDERED: DIAZEPAM 5 MG TABLET ONE ×3 (04:13→15:36)
[2020-04-20] MEDS ORDERED: DIAZEPAM 5 MG TABLET PO ONE (04:30)
[2020-04-20] MEDS ORDERED: MAGNESIUM SULFATE 1 GM, THIAMINE 100 MG, FOLIC ACID 1 MG in SODIUM CHLORIDE 0.9% 1,000 ML IV ONE (04:30)
[2020-04-20] MEDS ORDERED: SODIUM CHLORIDE FLUSH 10ML SYR IVF ONE (04:30)
[2020-04-20] MEDS ORDERED: SODIUM CHLORIDE 0.9% 1,000ML IVBOLUS ONE (04:30)
[2020-04-20] MEDS ORDERED: PROMETHAZINE 25 MG/ML, 1ML IM ONE (04:30)
[2020-04-20] MEDS ORDERED: LORazepam 2 MG/ML, 1ML IVPush PRN (04:30)
[2020-04-20] MEDS ORDERED: ONDANSETRON 2MG/ML, 2ML IVPush ONE (04:30)
--- NOTE | 2020-04-20 04:35 | NUR ---
RN HAD DISCUSSION WITH PATIENT AND PATIENT'S GF, BHAVESH, AT BEDSIDE REGARDING NEXT PLAN OF CARE. PATIENT SHOWING OBVIOUS SIGNS OF WITHDRAWAL. GF STATES THAT SHE IS GOING TO WORK SOON AND THERE WOULD BE NO ONE TO CARE FOR THIS PATIENT AT HOME. PER GF'S REPORT, PATIENT HAS BEEN DRINKING DAILY SINCE JANUARY INCLUDING TALL LIEN PAULINO AND "HE WAKES ME UP AT 0400 AM TO DO SHOTS OF ALCOHOL". SHE ALSO REPORTED THAT PATIENT HAS BEEN HOSPITALIZED A FEW TIMES WITHIN THE PAST 6 MONTHS FOR WITHDRAWAL OF ALCOHOL AND HAS HAD SEIZURES. PATIENT STATES HE WANTS HELP TO STOP DRINKING ALCOHOL. RN FELT PATIENT WAS AT RISK FOR FALLS AND/OR SEIZURES FROM DETOXING IF SENT HOME. THIS WAS DISCUSSED WITH DR. THURMAN AND AGREED PATIENT SHOULD BE ADMITTED FOR ALCOHOL WITHDRAWALS. SEIZURE PRECUATIONS INITIATED AND ORDERS PLACED BY ED DOCTOR. PATIENT AGREES TO PLAN. CIWA INITIATED. GF REPORTS PATIENT HAS A HISTORY OF BECOMING AGITATED WITH WITHDRAWALS AND "HE USUALLY NEEDS RESTRAINTS BECAUSE HE PULLS OUT IVS AND TAKES ALL HIS WIRES OFF." SAFETY MAINTAINED. 1:1 RACKET STRINGER IN VIEW OF PATIENT DUE TO PATIENT BEING RESTLESS/FIDGETY AND NOT FOLLOWING COMMANDS FLUENTLY. WILL CONTINUE TO MONITOR. MAINTAIN SAFETY
--- NOTE | 2020-04-20 04:43 | NUR ---
BHAVESH (GF) - CELL [phone] WORK [phone]
[2020-04-20 04:44] LABS: BASOPHILS % (AUTO) 1 % (0-1); EOSINOPHILS % (AUTO) 0 % (1-7); LYMPHOCYTES % (AUTO) 31 % (22-44); MEAN CORPUSCULAR HEMOGLOBIN 32.7 pg (27.5-34.5); MEAN PLATELET VOLUME 6.8 fL (7.4-10.4); MONOCYTES % (AUTO) 9 % (2-9); NEUTROPHILS % (AUTO) 58 % (42-75); PLATELET COUNT 75 x10^3/uL (130-400); RED BLOOD COUNT 5.04 x10^6/uL (4.38-5.82); RED CELL DISTRIBUTION WIDTH 14.1 % (9.4-14.8)
[2020-04-20] MEDS ORDERED: PROMETHAZINE 25 MG/ML, 1ML ONE (04:47)
[2020-04-20] MEDS ORDERED: LORazepam 2 MG/ML, 1ML ONE (04:47)
[2020-04-20 04:50] LABS: MD NO
[2020-04-20 04:57] LABS: ALANINE AMINOTRANSFERASE 189 U/L (12-78); ALBUMIN 4.1 g/dL (3.4-5.0); ANION GAP 13 mmol/L (5-15); CALCIUM 8.5 mg/dL (8.5-10.1); CHLORIDE 101 mmol/L (98-107); CREATININE 0.72 mg/dL (0.7-1.3)
[2020-04-20 05:01] LABS: ALKALINE PHOSPHATASE 106 U/L (45-117); BILIRUBIN,TOTAL 1.5 mg/dL (0.2-1.0); TOTAL PROTEIN 7.8 g/dL (6.4-8.2)
--- NOTE | 2020-04-20 05:59 | NUR ---
patient resting in bed with eyes closed. 1:1 sitter at bedside. O2 NC repositioned in nose. safety maintained. will continue to monitor.
--- NOTE | 2020-04-20 07:10 | NUR ---
report given to Marleny WALKER
--- NOTE | 2020-04-20 07:26 | NUR ---
Us at bedside. pt is calm, sleepy appearing. on monitor and 1:1 sitter.
[2020-04-20] MEDS ORDERED: ENOXAPARIN 40 MG/0.4 ML SQ SCH (07:30)
[2020-04-20] MEDS ORDERED: ONDANSETRON 2MG/ML, 2ML IV PRN (07:30)
[2020-04-20] MEDS ORDERED: LORazepam 2 MG/ML, 1ML IV PRN ×2 (07:30)
[2020-04-20] MEDS ORDERED: DOCUSATE 100 MG CAPSULE PO PRN (07:30)
[2020-04-20] MEDS ORDERED: LORazepam 1MG TABLET PO PRN (07:30)
[2020-04-20 07:37] LABS: INTERNATIONAL NORMALIZED RATIO 1.01 (0.93-1.1); PROTHROMBIN TIME 10.7 Seconds (9.6-11.5)
--- NOTE | 2020-04-20 07:48 | NUR ---
new sitter at bedside. pt calm and cooperative.
--- NOTE | 2020-04-20 08:51 | NUR ---
pt up to bedside, urinal , 400ml of dark urine produced.
--- NOTE | 2020-04-20 09:01 | NUR ---
pt given breakfast, sitter 1:1 at bedside.
[2020-04-20] MEDS ORDERED: LABETALOL 5MG/ML, 20ML IVPush PRN (09:30)
[2020-04-20] MEDS: DIAZEPAM 10 MG TABLET PO SCH ×2 (09:41→15:37)
--- NOTE | 2020-04-20 09:41 | NUR ---
PT GIVEN VALIUM. 5 MG TABLET X 2 IS AVAILABLE IN THE ER. GIVEN ZOFRAN. AWAITING BED.
[2020-04-20] MEDS ORDERED: ONDANSETRON 2MG/ML, 2ML ONE (09:44)
--- NOTE | 2020-04-20 09:55 | NUR ---
Report to Shayne WALKER. Pt up by w/c to bathroom.
--- NOTE | 2020-04-20 10:12 | NUR ---
Pt up on heart monitor by [employer] with 1:1 sitter.
[2020-04-20 10:21] VITALS: BP 143/93
[2020-04-20] MEDS: MULTIVITAMINS/MINERALS TABLET PO SCH (10:38)
[2020-04-20] MEDS ORDERED: PLEASE ENTER HEIGHT AND WEIGHT MC SCH (11:00)
[2020-04-20] MEDS: METOPROLOL TARTRATE 25 MG TAB PO SCH ×3 (12:23→19:54)
[2020-04-20] MEDS: LORazepam 0.5MG TABLET PO PRN (12:29)
[2020-04-20 12:46] VITALS: BP 117/80
[2020-04-20] MEDS: LORazepam 2 MG/ML, 1ML IV PRN ×3 (13:35→22:04)
[2020-04-20] MEDS ORDERED: THIAMINE 100 MG in SODIUM CHLORIDE 0.9% 50 ML IV ONE (14:00)
[2020-04-20 19:05] VITALS: BP 157/93
[2020-04-20] MEDS: DIAZEPAM 5 MG TABLET PO SCH (19:55)
[2020-04-20] MEDS: ACETAMINOPHEN 325 MG TABLET PO PRN (20:31)
[2020-04-20] MEDS ORDERED: LISINOPRIL 10 MG TABLET PO SCH (21:00)
[2020-04-21] MEDS ORDERED: LORazepam 2 MG/ML, 1ML IV PRN
[2020-04-21 00:34] VITALS: BP 144/88
[2020-04-21] MEDS: DIAZEPAM 5 MG TABLET PO SCH ×4 (01:34→19:20)
[2020-04-21] MEDS: LORazepam 2 MG/ML, 1ML IV PRN ×3 (04:21→22:30)
[2020-04-21] MEDS: METOPROLOL TARTRATE 25 MG TAB PO SCH ×3 (04:22→19:20)
[2020-04-21 05:01] LABS: MEAN CORPUSCULAR HEMOGLOBIN 32.3 pg (27.5-34.5); MEAN PLATELET VOLUME 7.6 fL (7.4-10.4); RED BLOOD COUNT 4.65 x10^6/uL (4.38-5.82)
[2020-04-21 05:10] LABS: ALANINE AMINOTRANSFERASE 145 U/L (12-78); ALBUMIN 3.4 g/dL (3.4-5.0); ANION GAP 2 mmol/L (5-15); CALCIUM 8.6 mg/dL (8.5-10.1); CHLORIDE 106 mmol/L (98-107); CREATININE 0.63 mg/dL (0.7-1.3)
[2020-04-21 05:13] LABS: ALKALINE PHOSPHATASE 87 U/L (45-117); BILIRUBIN,TOTAL 2.9 mg/dL (0.2-1.0); TOTAL PROTEIN 6.6 g/dL (6.4-8.2)
[2020-04-21 06:02] LABS: PLATELET COUNT 70 x10^3/uL (130-400)
[2020-04-21 06:04] LABS: MD YES
[2020-04-21 06:07] LABS: BAND#(MANUAL) 0.04 x10^3/uL; BANDS%(MANUAL) 1 % (0-7); BASOS#(MANUAL) 0.04 x10^3/uL (0-0.1); BASOS% (MANUAL) 1 % (0-1); EOS#(MANUAL) 0.04 x10^3/uL (0.0-0.4); EOS% (MANUAL) 1 % (1-7); LYMPH#(MANUAL) 0.58 x10^3/uL (1-3.4); LYMPHS% (MANUAL) 16 % (22-44); MONOS% (MANUAL) 11 % (2-9); SEG#(MANUAL) 2.52 x10^3/uL (1.8-6.8); SEGS% (MANUAL) 70 % (42-75)
[2020-04-21 06:08] LABS: <PLATELET ESTIMATE> DECREASED; <PLT MORPHOLOGY> NORMAL PLT MORPH; <RBC MORPHOLOGY> NORMAL
[2020-04-21] MEDS: LIDODERM REMOVE PATCH NOTE XX SCH (08:30)
[2020-04-21 08:37] VITALS: BP 138/93
[2020-04-21] MEDS ORDERED: THIAMINE 100 MG in DEXTROSE 5% 50 ML IVPB SCH (09:00)
[2020-04-21] MEDS: MULTIVITAMINS/MINERALS TABLET PO SCH (09:05)
[2020-04-21] MEDS: LIDODERM 5% PATCH TD SCH (09:07)
[2020-04-21] MEDS: LORazepam 1MG TABLET PO PRN ×2 (09:19→14:32)
[2020-04-21] MEDS: ACETAMINOPHEN 325 MG TABLET PO PRN (09:19)
[2020-04-21 12:23] VITALS: BP 132/89
[2020-04-21] MEDS: POTASSIUM CHLORIDE 20 MEQ, MAGNESIUM SULFATE 1 GM, THIAMINE 200 MG, FOLIC ACID 1 MG in ... IV SCH (14:26)
[2020-04-21] MEDS ORDERED: ADENOSINE 6 MG/2 ML ONE (15:13)
[2020-04-21 20:00] VITALS: BP 155/98
[2020-04-22 00:25] VITALS: BP 151/101
[2020-04-22] MEDS: DIAZEPAM 5 MG TABLET PO SCH ×4 (01:12→18:07)
[2020-04-22] MEDS: LORazepam 2 MG/ML, 1ML IV PRN ×3 (01:12→07:25)
[2020-04-22 07:23] VITALS: BP 134/96
[2020-04-22] MEDS: LISINOPRIL 20 MG TABLET PO SCH ×2 (07:24→20:02)
[2020-04-22] MEDS: MULTIVITAMINS/MINERALS TABLET PO SCH (07:24)
[2020-04-22] MEDS: METOPROLOL TARTRATE 25 MG TAB PO SCH ×2 (07:24→12:57)
[2020-04-22 12:10] VITALS: BP 125/85
[2020-04-22] MEDS: ACETAMINOPHEN 325 MG TABLET PO PRN ×2 (13:00→20:02)
[2020-04-22] MEDS: LIDODERM 5% PATCH TD SCH (13:00)
[2020-04-22] MEDS: LORazepam 1MG TABLET PO PRN ×2 (16:06→20:02)
[2020-04-22] MEDS: POTASSIUM CHLORIDE 20 MEQ, MAGNESIUM SULFATE 1 GM, THIAMINE 200 MG, FOLIC ACID 1 MG in ... IV SCH ×2 (16:07→16:52)
[2020-04-22] MEDS: LIDODERM REMOVE PATCH NOTE XX SCH (20:02)
[2020-04-22 21:00] VITALS: BP 141/95
[2020-04-23] MEDS: DIAZEPAM 5 MG TABLET PO SCH (00:23)
[2020-04-23] MEDS: METOPROLOL TARTRATE 25 MG TAB PO SCH ×3 (00:23→17:07)
[2020-04-23] MEDS: ACETAMINOPHEN 325 MG TABLET PO PRN (00:25)
[2020-04-23 00:26] VITALS: BP 133/92
[2020-04-23 06:45] VITALS: BP 120/87
[2020-04-23] MEDS: LIDODERM 5% PATCH TD SCH (08:17)
[2020-04-23] MEDS: LISINOPRIL 20 MG TABLET PO SCH ×2 (08:18→20:28)
[2020-04-23] MEDS: LORazepam 1MG TABLET PO PRN ×2 (08:18→20:28)
[2020-04-23] MEDS: MULTIVITAMINS/MINERALS TABLET PO SCH (08:18)
[2020-04-23] MEDS: NICOTINE 14MG/24 HR PATCH.TD24 TD SCH (10:17)
[2020-04-23] MEDS: THIAMINE 100MG TABLET PO SCH (11:06)
[2020-04-23] MEDS: FOLIC ACID 1 MG TABLET PO SCH (11:06)
[2020-04-23 12:50] VITALS: BP 131/87
[2020-04-23] MEDS: POTASSIUM CHLORIDE 20 MEQ, MAGNESIUM SULFATE 1 GM, THIAMINE 200 MG, FOLIC ACID 1 MG in ... IV SCH (17:07)
[2020-04-23 18:17] VITALS: BP 129/86
[2020-04-23] MEDS: LIDODERM REMOVE PATCH NOTE XX SCH (20:29)
[2020-04-23 23:11] VITALS: BP 158/111
[2020-04-24] MEDS: METOPROLOL TARTRATE 25 MG TAB PO SCH ×3 (00:51→16:42)
[2020-04-24 06:32] LABS: BASOPHILS % (AUTO) 1 % (0-1); EOSINOPHILS % (AUTO) 1 % (1-7); LYMPHOCYTES % (AUTO) 26 % (22-44); MEAN CORPUSCULAR HEMOGLOBIN 32.3 pg (27.5-34.5); MEAN CORPUSCULAR HGB CONC 33.7 g/dL (33.2-36.2); MEAN PLATELET VOLUME 8.6 fL (7.4-10.4); MONOCYTES % (AUTO) 15 % (2-9); NEUTROPHILS % (AUTO) 58 % (42-75); PLATELET COUNT 119 x10^3/uL (130-400); RED CELL DISTRIBUTION WIDTH 14.2 % (9.4-14.8)
[2020-04-24 06:45] LABS: ALBUMIN 3.7 g/dL (3.4-5.0); ANION GAP 6 mmol/L (5-15); CALCIUM 9.4 mg/dL (8.5-10.1); CHLORIDE 106 mmol/L (98-107)
[2020-04-24 06:46] LABS: MD NO
[2020-04-24 07:14] LABS: ALANINE AMINOTRANSFERASE 220 U/L (12-78); ALKALINE PHOSPHATASE 91 U/L (45-117); BILIRUBIN,TOTAL 1.4 mg/dL (0.2-1.0); CREATININE 0.72 mg/dL (0.7-1.3); TOTAL PROTEIN 7.4 g/dL (6.4-8.2)
[2020-04-24 07:49] VITALS: BP 141/96
[2020-04-24] MEDS: FOLIC ACID 1 MG TABLET PO SCH (09:36)
[2020-04-24] MEDS: LISINOPRIL 20 MG TABLET PO SCH ×2 (09:37→20:32)
[2020-04-24] MEDS: LORazepam 1MG TABLET PO PRN ×2 (09:37→20:32)
[2020-04-24] MEDS: MULTIVITAMINS/MINERALS TABLET PO SCH (09:37)
[2020-04-24] MEDS: NICOTINE 14MG/24 HR PATCH.TD24 TD SCH (09:38)
[2020-04-24] MEDS: THIAMINE 100MG TABLET PO SCH (09:38)
[2020-04-24] MEDS: LIDODERM 5% PATCH TD SCH (09:38)
[2020-04-24] MEDS ORDERED: LACTOBACILLUS CHEW TABLET ONE (09:43)
[2020-04-24] MEDS: LACTOBACILLUS CHEW TABLET PO SCH ×3 (09:46→20:31)
[2020-04-24 12:47] VITALS: BP 127/84
[2020-04-24] MEDS: POTASSIUM CHLORIDE 20 MEQ, MAGNESIUM SULFATE 1 GM, THIAMINE 200 MG, FOLIC ACID 1 MG in ... IV SCH (15:00)
[2020-04-24] MEDS: LORazepam 0.5MG TABLET PO PRN (15:20)
[2020-04-24 20:22] VITALS: BP 137/94
[2020-04-24] MEDS: LIDODERM REMOVE PATCH NOTE XX SCH (20:30)
[2020-04-25 00:41] VITALS: BP 138/92
[2020-04-25] MEDS: METOPROLOL TARTRATE 25 MG TAB PO SCH ×3 (00:44→16:19)
[2020-04-25] MEDS: LORazepam 1MG TABLET PO PRN (00:44)
[2020-04-25 05:48] LABS: BASOPHILS % (AUTO) 1 % (0-1); EOSINOPHILS % (AUTO) 1 % (1-7); LYMPHOCYTES % (AUTO) 33 % (22-44); MEAN CORPUSCULAR HEMOGLOBIN 32.2 pg (27.5-34.5); MEAN PLATELET VOLUME 8.1 fL (7.4-10.4); MONOCYTES % (AUTO) 17 % (2-9); NEUTROPHILS % (AUTO) 49 % (42-75); PLATELET COUNT 142 x10^3/uL (130-400); RED CELL DISTRIBUTION WIDTH 14.5 % (9.4-14.8)
[2020-04-25 05:57] LABS: MD NO
[2020-04-25 06:04] LABS: CHLORIDE 106 mmol/L (98-107)
[2020-04-25 06:11] LABS: ALANINE AMINOTRANSFERASE 237 U/L (12-78); ALBUMIN 3.5 g/dL (3.4-5.0); ALKALINE PHOSPHATASE 83 U/L (45-117); ANION GAP 6 mmol/L (5-15); CALCIUM 9.2 mg/dL (8.5-10.1); CREATININE 0.68 mg/dL (0.7-1.3); TOTAL PROTEIN 6.9 g/dL (6.4-8.2)
[2020-04-25 08:35] VITALS: BP 130/88
[2020-04-25] MEDS: THIAMINE 100MG TABLET PO SCH (09:00)
[2020-04-25] MEDS: MULTIVITAMINS/MINERALS TABLET PO SCH (09:01)
[2020-04-25] MEDS: LACTOBACILLUS CHEW TABLET PO SCH ×2 (09:01→16:19)
[2020-04-25] MEDS: LISINOPRIL 20 MG TABLET PO SCH (09:01)
[2020-04-25] MEDS: NICOTINE 14MG/24 HR PATCH.TD24 TD SCH (09:02)
[2020-04-25] MEDS: LIDODERM 5% PATCH TD SCH (09:03)
[2020-04-25] MEDS: FOLIC ACID 1 MG TABLET PO SCH (09:05)
[2020-04-25] MEDS ORDERED: METO25TA35 PO (09:26)
[2020-04-25] MEDS ORDERED: THIA100T67 PO (09:26)
[2020-04-25 12:37] VITALS: BP 107/71
== END 2020-04-25 17:28 | disposition home or self-care (01) | DRG 433 ==
LOC: ED 04-20 00:07 → EDIP 04-20 06:27 → 5SO 04-20 10:19
PROVIDERS: ADMIT Internal Medicine Infectious Disease; ATTEND Hospitalist
DX: K70.10 Alcoholic hepatitis without ascites (principal); F10.239 Alcohol dependence with withdrawal, unspecified; N13.30 Unspecified hydronephrosis; D69.6 Thrombocytopenia, unspecified; F10.220 Alcohol dependence with intoxication, uncomplicated; I10 Essential (primary) hypertension; K74.60 Unspecified cirrhosis of liver; S00.81XA Abrasion of other part of head, initial encounter; W06.XXXA Fall from bed, initial encounter; R74.01 Elevation of levels of liver transaminase levels; R56.9 Unspecified convulsions; Z87.891 Personal history of nicotine dependence
CPT/HCPCS: 36415; 70450; 76700; 80053; 80074; 80320; 82607; 83735; 84100; 84443; 85025; 85610; 93005; 99285; G0378; J2405; J2550; J3411; J3475; J3480; G0480; J2060; J7030

== ENCOUNTER 2020-05-21 04:20 | Emergency (ER) | payer MEDICAID ==
[~2020-05-21] VITALS: Ht 175.3 cm; Wt 90.0 kg
[~2020-05-21 04:20] MED LIST changes: -FOLI-17 PO; +FOLI1TAB32 PO; +METO25TA35 PO; +THIA100T67 PO
[2020-05-21] MEDS ORDERED: LORazepam 2 MG/ML, 1ML ONE (04:59)
[2020-05-21] MEDS ORDERED: ONDANSETRON 2MG/ML, 2ML ONE (04:59)
[2020-05-21] MEDS ORDERED: ONDANSETRON 2MG/ML, 2ML IVPush ONE (05:00)
[2020-05-21] MEDS ORDERED: SODIUM CHLORIDE 0.9% 1,000ML IVBOLUS ONE (05:00)
[2020-05-21] MEDS ORDERED: LORazepam 2 MG/ML, 1ML IVPush ONE (05:00)
[2020-05-21 05:24] LABS: BASOPHILS % (AUTO) 2 % (0-1); EOSINOPHILS % (AUTO) 1 % (1-7); LYMPHOCYTES % (AUTO) 29 % (22-44); MEAN CORPUSCULAR HEMOGLOBIN 32.9 pg (27.5-34.5); MEAN CORPUSCULAR HGB CONC 34.8 g/dL (33.2-36.2); MEAN PLATELET VOLUME 6.6 fL (7.4-10.4); MONOCYTES % (AUTO) 9 % (2-9); NEUTROPHILS % (AUTO) 59 % (42-75); PLATELET COUNT 169 x10^3/uL (130-400); RED BLOOD COUNT 5.04 x10^6/uL (4.38-5.82)
[2020-05-21 05:30] LABS: ALANINE AMINOTRANSFERASE 44 U/L (12-78); ALBUMIN 3.8 g/dL (3.4-5.0); ANION GAP 10 mmol/L (5-15); CALCIUM 8.6 mg/dL (8.5-10.1); CHLORIDE 107 mmol/L (98-107); CREATININE 0.73 mg/dL (0.7-1.3)
[2020-05-21 05:33] LABS: ALKALINE PHOSPHATASE 88 U/L (45-117); TOTAL PROTEIN 7.6 g/dL (6.4-8.2)
[2020-05-21 06:09] LABS: MD SCAN
[2020-05-21 06:53] VITALS: BP 139/74
== END 2020-05-21 06:55 | disposition home or self-care (01) ==
LOC: ED 04:42
DX: F10.229 Alcohol dependence with intoxication, unspecified (principal); R11.0 Nausea; I10 Essential (primary) hypertension; Y90.0 Blood alcohol level of less than 20 mg/100 ml
CPT/HCPCS: 36415; 80053; 80320; 83690; 85025; 96361; 96374; 96375; 99284; J2060; J2405; J7030; G0480

== ENCOUNTER 2020-08-18 19:09 | Emergency (ER) | payer MEDICAID ==
[~2020-08-18] VITALS: Ht 175.3 cm; Wt 87.9 kg
--- NOTE | 2020-08-18 19:10 | NUR ---
Pt arrived with complaints of n/v/d since this am when he woke up, pt has visable piloerection and is bent over in fear that he will vomit. Pt has friend at bedside, pt connected to BP and O2 monitors, EKG done, no fever with oral temp, all VSS, NADN, WCTM
[2020-08-18] MEDS ORDERED: PROMETHAZINE 25 MG/ML, 1ML ONE (19:51)
[2020-08-18 19:58] LABS: BASOPHILS % (AUTO) 0 % (0-1); EOSINOPHILS % (AUTO) 0 % (1-7); LYMPHOCYTES % (AUTO) 14 % (22-44); MEAN CORPUSCULAR HEMOGLOBIN 32.6 pg (27.5-34.5); MEAN CORPUSCULAR HGB CONC 35.2 g/dL (33.2-36.2); MEAN PLATELET VOLUME 7.8 fL (7.4-10.4); MONOCYTES % (AUTO) 4 % (2-9); NEUTROPHILS % (AUTO) 81 % (42-75); PLATELET COUNT 208 x10^3/uL (130-400); RED BLOOD COUNT 5.68 x10^6/uL (4.38-5.82); RED CELL DISTRIBUTION WIDTH 12.4 % (9.4-14.8)
[2020-08-18] MEDS ORDERED: PROMETHAZINE 25 MG/ML, 1ML IM ONE (20:00)
[2020-08-18 20:04] LABS: MD NO
[2020-08-18 20:10] LABS: ALANINE AMINOTRANSFERASE 21 U/L (12-78); ALBUMIN 4.4 g/dL (3.4-5.0); ANION GAP 9 mmol/L (5-15); CALCIUM 9.7 mg/dL (8.5-10.1); CHLORIDE 107 mmol/L (98-107); CREATININE 0.85 mg/dL (0.7-1.3)
--- NOTE | 2020-08-18 20:10 | NUR ---
Pt medicated per MAR, tolerated well
[2020-08-18 20:13] LABS: ALKALINE PHOSPHATASE 90 U/L (45-117); BILIRUBIN,TOTAL 1.6 mg/dL (0.2-1.0); TOTAL PROTEIN 7.8 g/dL (6.4-8.2)
[2020-08-18] MEDS ORDERED: HALOPERIDOL 5 MG/ML ONE ×2 (20:48→22:24)
[2020-08-18] MEDS ORDERED: SODIUM CHLORIDE 0.9% 1,000ML IVBOLUS ONE (21:00)
[2020-08-18] MEDS ORDERED: HALOPERIDOL 5 MG/ML IV ONE ×2 (21:00→21:30)
--- NOTE | 2020-08-18 21:05 | NUR ---
Cardiac monior in place prior to medical receptionist, IV placed, EVITA hugger provided with additional blankets for comfort, no other requests at this time
--- NOTE | 2020-08-18 22:12 | NUR ---
Pt resting comfortably in bed with eyes closed, even and symmetrical chest rise, NADN
--- NOTE | 2020-08-18 22:27 | NUR ---
Pt request to nonadmin med and be given DC paperwork
[2020-08-18 22:47] VITALS: BP 133/80
== END 2020-08-18 22:49 | disposition home or self-care (01) ==
LOC: ED 20:05
DX: R11.2 Nausea with vomiting, unspecified (principal); R19.7 Diarrhea, unspecified; I10 Essential (primary) hypertension; F17.210 Nicotine dependence, cigarettes, uncomplicated
CPT/HCPCS: 36415; 80053; 83690; 85025; 93005; 96361; 96372; 96374; 99284; J1630; J2550; J7030